=== PATIENT | male | born 1960 | race Caucasian/White ===

== ENCOUNTER 2021-07-21 13:16 | Emergency (ER) | payer MEDICAID, SELFPAY ==
[2021-07-21 13:18] VITALS: BP 148/89; PULSE 105; RESP 14; TEMP 36.8; O2SAT 97; BMI 22.3
[2021-07-21 15:42] VITALS: BP 174/99; PULSE 94; RESP 19; O2SAT 98
--- NOTE | 2021-07-21 15:49 | EDS_ITS ---
HPI History of Present Illness Chief Complaint: Dizziness Detail of Chief Complaint: Dizziness which patient defines as lightheadedness Informant: patient Onset/Context/Timing Onset: Today (Early this morning) Context: Sudden Onset Timing: Intermittent (Duration 30 minutes) Quality: Lightheaded Location: Residents Current Severity: Gone Maximum Severity: Severe Worsened by: Upright position and running around Relieved by: Preferred to sit Associated Symptoms Associated Symptoms: Nausea Narrative Narrative: Patient is a 61-year-old male who has smoked for 40+ years. He presently smokes 1/4 pack/day. 5 years ago he smoked 1.5 packs/day. Patient's had a 14 pound unintentional weight loss over the past year. Patient presents because of lightheadedness that occurred this morning when he was running around. He felt nauseous and warm. He did not pass out. He denies fever, chills or night sweats. He denies ocular, visual, auditory symptoms. He denies trouble with speech or swallowing. He does endorse chronic cough otherwise respiratory is negative. He has no cardiac symptoms. He denied vomiting or diarrhea. He denied black or maroon-colored stool. He denies urologic symptoms. He does endorse numbness and tingling for approximately 2 years in his extremities. He denies headache. He denies problems with his balance. Prior similar symptoms: No Recent Illness/Hospitalization: No PFSH PFSH Medical History no medical history no medical history (Patient has not seen a physician in 2+ decades) Home Medications NK 07/21/21 [History Last Taken Unknown] Allergy/AdvReac Type Severity Reaction Status Date / Time No Known Allergies Allergy Verified 07/21/21 13:18 Surgical History no surgical history no surgical history Social History (Updated 07/21/21 @ 15:[address] Roni Sharma MD) household members: spouse Smoking Status: Light Smoker (<10/day) alcohol intake: current alcohol intake frequency: 3 or more drinks per day details: 6 beers per day. None today substance use type: does not use ROS ROS ED Constitutional Constitutional ED: Reports weight loss; Denies chills, fever(s), subjective or sweats Eyes Eyes: Denies blurry vision, change in vision or diplopia ENT ENT ED: Reports other Details: He endorses dry mouth and thirst. ; Denies ear pain, rhinorrhea or sore throat Cardiovascular Cardiovascular: Denies chest pain, orthopnea, palpitations or racing heartbeat Respiratory/Chest Respiratory/Chest: Denies cough, dyspnea, dyspnea on exertion, orthopnea or sputum Gastrointestinal Gastrointestinal: Reports nausea; Denies abdominal pain, constipation, diarrhea or vomiting Genitourinary Genitourinary ED: Denies dysuria, hematuria or urinary frequency Musculoskeletal Musculoskeletal: Reports back pain and other Details: Back pain is due to an injury of last week ; Denies arthralgias, myalgias or neck pain Integumentary Denies rash Neurologic Neurologic: Denies headache(s), paresthesias or weakness Endocrine Endocrinology: Denies polydipsia, polyphagia or polyuria EXAM Physical Exam Const Vital Signs: 07/21/21 13:18 07/21/21 15:42 07/21/21 15:43 Temperature 98.2 F Temperature Source Temporal Pulse Rate 105 H 94 Pulse Rate [Lying] Pulse Rate [Sitting (for 1 minute prior to obtaining)] Pulse Rate [Standing (for 1 minute prior to obtaining)] Respiratory Rate 14 19 H Respiratory Effort Normal Non-Labored Respiratory Pattern Normal Blood Pressure 148/89 H 174/99 H Blood Pressure [Lying] Blood Pressure [Sitting (for 1 minute prior to obtaining)] Blood Pressure [Standing (for 1 minute prior to obtaining)] Blood Pressure Mean 108 124 Blood Pressure Mean [Lying] Blood Pressure Mean [Sitting (for 1 minute prior to obtaining)] Blood Pressure Mean [Standing (for 1 minute prior to obtaining)] Pulse Ox 97 98 Oxygen Delivery Method Room Air Room Air 07/21/21 15:51 Temperature Temperature Source Pulse Rate Pulse Rate [Lying] 78 Pulse Rate [Sitting (for 1 minute prior to obtaining)] 80 Pulse Rate [Standing (for 1 minute prior to obtaining)] 96 Respiratory Rate Respiratory Effort Respiratory Pattern Blood Pressure Blood Pressure [Lying] 146/96 H Blood Pressure [Sitting (for 1 minute prior to obtaining)] 159/106 H Blood Pressure [Standing (for 1 minute prior to obtaining)] 163/97 H Blood Pressure Mean Blood Pressure Mean [Lying] 112 Blood Pressure Mean [Sitting (for 1 minute prior to obtaining)] 123 Blood Pressure Mean [Standing (for 1 minute prior to obtaining)] 119 Pulse Ox Oxygen Delivery Method Positive well nourished and well developed Constitutional Narrative: Orthostatic vital signs are negative. General Appearance ED: well developed; Negative for cyanotic, diaphoretic or pallor HEENT Reports TM's clear and dry mucous membranes HEENT Narrative: Nares patent. Uvula midline. There is no erythema or exudate. Negative for trauma or tenderness Tympanic Membrane ED: Yes TM's clear Mouth ED: Yes dry mucous membranes Mouth: dry mucous membranes Eyes PERRL and EOMs intact bilaterally General Eye ED: Negative for pale conjunctiva or scleral icterus Neck no lymphadenopathy, supple and no JVD Resp normal respiratory effort and clear to auscultation bilaterally Cardio regular rate, regular rhythm, S1 normal heart sound, S2 normal heart sound and no murmurs GI normal to inspection, nondistended, normoactive bowel sounds and non-tender Palpation: soft Back/Spine no CVA tenderness Extremity normal to inspection General Extremety ED: Negative for edema or tenderness General Extremity: Negative for edema Neuro oriented x3, CN's II-XII intact bilaterally and no sensory deficits noted Sensorium / Orientation: alert Motor Exam: strength 5/5 throughout Psych mental status grossly normal Skin no rashes or lesions noted and no wounds General Skin Exam: Negative for jaundice or pallor MDM MDM MDM Narrative Medical decision making narrative: Patient presents with lightheadedness. Clinically is dehydrated. 1 L normal saline was ordered. Orthostatic vitals were ordered. Because he has had an unintentional weight loss of significant smoking history baseline blood work was obtained to rule out anemia, hyper Uche C. Eboni and elevated alkaline phosphatase which may represent metastasis to bone. Patient reevaluated at 1730. Patient is improved. He and family told lab results and referral to primary care physician. Lab Data Attestation: I reviewed the patient's lab results. Lab results narrative: CBC and comprehensive metabolic panel unremarkable. Labs: Laboratory Results - last 24 hr 07/21/21 07/21/21 07/21/21 15:50 15:50 16:35 WBC 10.0 RBC 4.15 L Hgb 14.4 Hct 43.4 MCV 104.6 H MCH 34.7 H MCHC 33.2 RDW Std Deviation 48.9 H RDW Coeff of [place]ora 12.4 Plt Count 268 MPV 9.0 Immature Gran % (Auto) 0.200 Neut % (Auto) 80.2 H Lymph % (Auto) 14.5 L [place] % (Auto) 3.9 Eos % (Auto) 0.7 Baso % (Auto) 0.5 Absolute Neuts (auto) 8.0 H Absolute Lymphs (auto) 1.45 Nucleated RBC % 0 Sodium 138 Potassium 4.1 Chloride 105 Carbon Dioxide 29.0 Anion Gap 4 L BUN 10 Creatinine 0.83 Estim Creat Clear Calc 77.12 Est GFR (MDRD) Af Amer 123 Est GFR (MDRD) Non-Af 101 BUN/Creatinine Ratio 12.1 Glucose 99 Calcium 9.2 Total Bilirubin 0.30 AST 28 ALT 28 Alkaline Phosphatase 62 Total Protein 7.3 Albumin 3.9 Globulin 3.4 Albumin/Globulin Ratio 1.1 Urine Color Straw Urine Clarity Clear Urine pH 6.0 Ur Specific [place] 1.010 Urine Protein Negative Urine Glucose (UA) Normal Urine Ketones 5 H Urine Occult Blood 25 H Urine Nitrite Negative Urine Bilirubin Negative Urine Urobilinogen Normal Ur Leukocyte Esterase Negative Discharge Plan Triage Chief Complaint: Dizziness ED Provider: Roni Sharma Dx/Rx/DC Orders Clinical Impression: Orthostatic dizziness Instructions: ED Near-Fainting, Uncertain Cause Prescriptions: No Action NK RF: 0 Primary Care Provider: Care Physician,No Primary Referrals: Apple Luo DO [STAFF PHYSICIAN] - 1-2 Weeks Care Physician,No Primary [Primary Care Provider] - Disposition Disposition: Home, Self Care
[2021-07-21 15:51] VITALS: BP 146/96; BP 159/106; BP 163/97; PULSE 78; PULSE 80; PULSE 96
[2021-07-21] MEDS: 0.9% Normal Saline 1,000 ML 1000 ML IV (15:58)
[2021-07-21 16:09] LABS: Absolute Lymphocyte Count 1.45 X10^3/uL (0.83-4.51); Basophil# 0.05 X10^3/uL; Basophil% 0.5 % (0-1); Eosinophil# 0.07 X10^3/uL; Eosinophils% 0.7 % (0-5); Hematocrit 43.4 % (40-54); Hemoglobin 14.4 g/dL (13.0-16.5); Lymphocyte # 1.45 X10^3/ul (0.83-4.51); Lymphocyte % 14.5 % (19-41); Mean Corp Hgb Conc 33.2 g/dL (32-36); Mean Corpuscular Hgb 34.7 pg (27.0-32.0); Mean Corpuscular Volume 104.6 fL (80-94); Monocyte# 0.39 X10^3/uL; Monocyte% 3.9 % (0-10); NRBC Flagged by Analyzer 0 % (0-5); Neutrophil % 80.2 % (47-70); Platelet Count 268 K/mm3 (150-450); RBC Distribution Width CV 12.4 % (11.6-14.6); RBC Distribution Width SD 48.9 fl (35.1-43.9); Red Blood Count 4.15 M/mm3 (4.6-6.2)
[2021-07-21 16:35] LABS: ALB/GLOB Ratio 1.1 RATIO (0.9-2.4); AST(SGOT) 28 U/L (15-37); Alanine Aminotransfer ALT/SGPT 28 U/L (16-61); Albumin, Serum 3.9 g/dL (3.2-5.0); Alkaline Phosphatase 62 U/L (45-117); Anion Gap 4 (5-15); BUN 10 mg/dL (7-18); BUN/Creat Ratio 12.1 RATIO (10-20); Calcium,Total 9.2 mg/dL (8.5-10.1); Chloride 105 mmol/L (98-107); Creatinine, Serum 0.83 mg/dL (0.70-1.30); EST Glomerular Filtration Rate 101 mL/min (>60); Est Glom Filt Rate - Afr Amer 123 mL/min (>60); Estimated Creatinine Clearance 77.12 ml/min; Globulin 3.4 g/dL (2.2-4.2); Glucose 99 mg/dL (74-106); Potassium 4.1 mmol/L (3.5-5.1); Protein, Total 7.3 g/dL (6.4-8.2); Sodium Level 138 mmol/L (136-145)
[2021-07-21 17:09] LABS: Color, Urine Straw (Yellow); Glucose, Dipstick Normal (Normal); Ketone-Dipstick 5 mg/dl (Negative); Leukocyte Esterase-Dipstick Negative /ul (Negative); Nitrite-Dipstick Negative (Negative); Occult Blood-Urine 25 /ul (Negative); Protein-Dipstick Negative (Negative); Urine Bilirubin Dipstick Negative (Negative); Urine Clarity Clear (Clear); Urine Urobilinogen Normal (Normal)
== END 2021-07-21 17:45 | disposition home or self-care (01) ==
PROVIDERS: Emergency Provider Emergency Medicine; Visit Provider Emergency Medicine
DX: R42 Dizziness and giddiness (principal); F17.200 Nicotine dependence, unspecified, uncomplicated
CPT/HCPCS: 80053; 81002; 85025; 96360; 99285; J7030; A4216

== ENCOUNTER → 2021-09-17 | Outpatient (CLI) | payer MEDICAID, SELFPAY ==
[2021-09-17 15:16] LABS: Vitamin B12 418 pg/mL (211-911)
[2021-09-17 15:19] LABS: Cholesterol 170 mg/dL (200); High Density Lipoprotein 98 mg/dL; Thyroid Stim Hormone (TSH) 0.93 uIU/mL (0.358-3.74); Triglycerides 40 mg/dL; Very Low Density Lipoprotein 8 mg/dL (5-40)
[2021-09-17 15:21] LABS: Hemoglobin A1c 5.6 % (3.8-5.6)
== END | disposition home or self-care (01) ==
LOC: MFPLAB 11:45
PROVIDERS: PCP Family Medicine; Referring Provider Family Medicine; Visit Provider Family Medicine
DX: Z13.1 Encounter for screening for diabetes mellitus (principal); Z13.220 Encounter for screening for lipoid disorders; R53.83 Other fatigue
CPT/HCPCS: 36415; 80061; 82306; 82607; 83036; 84443

== ENCOUNTER → 2021-09-25 | Outpatient (CLI) | payer MEDICAID, SELFPAY ==
--- NOTE | 2021-09-25 08:03 | CT_ITS ---
STUDY: CT CHEST WITH CONTRAST REASON FOR EXAM: Male, 61 years old. Lung nodule, shortness of breath RADIATION DOSAGE (If Supplied By Facility): CTDIvol = ( 8 ) mGy, DLP = ( 233.3 ) mGycm TECHNIQUE: Transaxial imaging was performed following intravenous administration of IV 100mL Isovue-300. Multiplanar coronal and sagittal images were reformatted. Individualized dose optimization techniques were used for this CT. COMPARISON: No relevant priors. FINDINGS: CHEST Hyperinflation. Diffuse emphysematous changes with bullous formation more prominent in the upper lobes. There is evidence of a pleural-based irregular soft tissue nodule in the posterior aspect of the left upper lobe measuring 1.7 cm x 1.2 cm. Anterior to this, there is evidence of bullous changes with a finding suggestive of linear scarring and spiculation. Correlation with a PET scan is recommended for further evaluation. There is no demonstrated pleural abnormality. There are calcifications of the coronary arteries. Normal mediastinum. Normal hilar regions. Normal unenhanced pulmonary arteries. Normal aorta arch and descending thoracic aorta. Normal osseous structures. There is a 2 cm x 2 cm cyst in the upper medial aspect of the right kidney. There is also evidence of a 0.9 cm cyst in the right lobe of the liver. CT/Chest WITH Contrast IMPRESSION: Hyperinflation and emphysema with bullous changes. Findings suggestive of irregular scarring in the posterior aspect of the left upper lobe as described. Correlation with a PET scan is recommended for further evaluation to rule out underlying neoplastic process. Electronically Signed: Jose Roberto Wynne MD at 9:08 EDT ,
== END | disposition home or self-care (01) ==
LOC: CT 08:02
PROVIDERS: PCP Family Medicine; Referring Provider Family Medicine; Visit Provider Family Medicine
DX: R91.1 Solitary pulmonary nodule (principal)
CPT/HCPCS: 71260; Q9967

== ENCOUNTER → 2021-10-08 | Outpatient (CLI) | payer MEDICAID, SELFPAY ==
--- NOTE | 2021-10-08 10:00 | PET_ITS ---
EXAMINATION: FDG PET-CT INDICATIONS: A 61-year-old male with history of pulmonary nodularity. COMPARISON EXAMINATION: None available INDEX LESION SIZE SUV INTERPRETATION Left upper lung field 32.6-mm 4.45 Fulfills quantitative criteria for viable neoplasm, histopathologic analysis recommended NON-INDEX LESION SIZE SUV INTERPRETATION Left thoracic perihilum, right infrahilar region 2.3 (max) Quantitative criteria for viable neoplasm are not fulfilled TECHNIQUE: Following the intravenous administration of 12.08 mCi of F-18 deoxyglucose via the right antecubital fossa, multiplanar image acquisitions of the neck, chest, abdomen and pelvis to level of mid thigh, obtained at one hour post radiopharmaceutical administration contemporaneously interpreted with the current CT of the neck, chest, abdomen and pelvis, to level of mid thigh, dated 10/08/21 via coregistration reveals: BLOOD GLUCOSE LEVEL:?? 97 mg/dl?HEIGHT:?63 inches?WEIGHT: 118 lbs. FINDINGS: Head/Neck: There is no evidence of abnormal increased glucose metabolism in the pharyngeal mucosal space, parapharyngeal space, bilateral-lateral and anterior neck, hypopharynx and distribution of the laryngeal structures. The visualized portion of the cerebral cortical-subcortical structures demonstrate symmetric and preserved glucose metabolism. CHEST: A focus increased glucose metabolism is identified in the left apical lung field. The calculated maximal standard uptake value is 4.45. The maximal axial diameter of the metabolic, morphologic abnormality is 32.6-mm. Increased glucose metabolism is identified in the left thoracic perihilum and right infrahilar region. The calculated maximal standard uptake value is 2.3. Pertinent chest CT findings are as follows. Emphysematous changes are encountered in the bilateral upper lung zones. Coronary arterial calcification is observed. Bilateral axillary soft tissue densities are non-glucose avid. Abdomen/Pelvis: Normal physiologic distribution of the radiopharmaceutical is apparent in the hepatic (2.4) and splenic parenchyma, both renal units, bladder and visualized intestinal tract. Diffuse radiopharmaceutical concentration is noted in all four quadrants of the abdomen and pelvis. Pertinent abdomen and pelvis CT findings are as follows. There is atherosclerotic calcification defined in the abdominal aorta without evidence of dilatation-aneurysm formation. Minimal pelvic arterial calcification is encountered. Right-left inguinal soft tissue densities are non-glucose avid. Calcification is defined in the right base of the prostate gland involving the central zone without evidence of increased glucose metabolism. Calcification is defined in the left lower hemipelvis. Skeletal: Degenerative changes are noted in the cervical, thoracic and lumbar spine without evidence of increased radiopharmaceutical concentration. There are no well-defined sclerotic-lytic changes manifest on review of the appendicular-axial skeletal structures. PET/PET/CT Tumor Base -Thigh Init IMPRESSION: 1. The increase in glucose metabolism identified in the left upper hemithorax pulmonary parenchyma, left upper lobe fulfills quantitative criteria for viable neoplasm with single point technique. Histopathologic analysis is recommended. 2. The enhanced tracer concentration noted in the right infrahilar region and left thoracic perihilum do not fulfill quantitative criteria for malignant transformation. (Maria C piper al, Journal of Clinical Oncology 16:2142, 1998). Electronic Signature Leonel Mercado D.O. Accurate Quantification of SUVs for this report are calculated using the exclusive [employer]. (U.S. Patent No. 10, [id number] 983). Standardization and correction of the FDG SUV metric via [employer] technology allow for vendor non-specific objective quantitative examination comparison and optimization of the sensitivity and specificity of the FDG PET-CT examination. Electronically Signed: Leonel Mercado, at 16:37 EDT ,
== END | disposition home or self-care (01) ==
LOC: ONC 10:03
PROVIDERS: PCP Family Medicine; Referring Provider Family Medicine; Visit Provider Family Medicine
DX: R91.1 Solitary pulmonary nodule (principal)
CPT/HCPCS: 78815; A9552

== ENCOUNTER 2022-09-26 22:34 | Emergency (ER) | payer MEDICAID, SELFPAY ==
[2022-09-26 22:34] VITALS: O2SAT 96
[2022-09-26 22:35] VITALS: BP 151/95; PULSE 113; RESP 20; TEMP 36.8; O2SAT 95; BMI 20.2
--- NOTE | 2022-09-26 23:05 | RAD_ITS ---
INDICATION: dyspnea EXAMINATION/TECHNIQUE: X-RAY - XR Chest 2 Views COMPARISON: Chest CTA 09/25/2021.. Findings: Frontal and lateral views of the chest. LUNG PARENCHYMA: No acute focal airspace disease. Stable left apical curvilinear scarring. Right mid lung 5 mm rounded opacity overlying the anterior fifth rib end, not seen previously. PLEURA: Flattening of the hemidiaphragms as can be seen with air trapping. No pleural effusion. No pneumothorax. HEART/GREAT VESSELS: Cardiomediastinal silhouette is unremarkable. BONES: Stable expansile bony lesion of right lower anterior rib end. RAD/Chest PA and Lateral IMPRESSION: Right mid lung 5 mm rounded opacity overlying the anterior fifth rib end, not seen previously, to include pulmonary nodule. Recommend follow-up evaluation as neoplastic process is not excluded. Stable chest with no acute disease. Air trapping as can be seen with COPD change. Electronically Signed: Bang Garcia MD at 23:51 EDT ,
[2022-09-26 23:08] LABS: Absolute Neutrophil Count 8.7 X10^3/uL (2.0-7.7); Basophil# 0.06 X10^3/uL; Basophil% 0.6 % (0-1); Eosinophil# 0.08 X10^3/uL; Eosinophils% 0.8 % (0-5); Hematocrit 45.7 % (40-54); Hemoglobin 15.2 g/dL (13.0-16.5); Lymphocyte % 12.3 % (19-41); Mean Corp Hgb Conc 33.3 g/dL (32-36); Mean Corpuscular Hgb 35.4 pg (27.0-32.0); Mean Corpuscular Volume 106.5 fL (80-94); Mean Platelet Vol. 8.7 fl (6.2-12.0); Monocyte% 3.8 % (0-10); NRBC Flagged by Analyzer 0 % (0-5); Neutrophil # 8.72 X10^3/uL (2.7-7.7); Neutrophil % 82.2 % (47-70); Platelet Count 236 K/mm3 (150-450); RBC Distribution Width CV 13.1 % (11.6-14.6); RBC Distribution Width SD 51.4 fl (35.1-43.9); Red Blood Count 4.29 M/mm3 (4.6-6.2); White Blood Count 10.6 K/mm3 (4.4-11.0)
[2022-09-26] MEDS: Ipratropium/Albuterol Sulfate 3 ML AMPUL.NEB INHALATION (23:15)
[2022-09-26 23:20] LABS: Anion Gap 7 (5-15); BUN 5 mg/dL (7-18); BUN/Creat Ratio 7.2 RATIO (10-20); Calcium,Total 8.7 mg/dL (8.5-10.1); Chloride 109 mmol/L (98-107); EST Glomerular Filtration Rate 122 mL/min (>60); Est Glom Filt Rate - Afr Amer 148 mL/min (>60); Estimated Creatinine Clearance 82.38 ml/min; Glucose 97 mg/dL (74-106); Magnesium 2.2 mg/dL (1.6-2.6); Sodium Level 140 mmol/L (136-145)
[2022-09-26 23:34] VITALS: BP 115/81; PULSE 100; RESP 19; O2SAT 93
[2022-09-27] VITALS: BP 116/68; PULSE 112; RESP 19; O2SAT 93
[2022-09-27 00:17] VITALS: O2SAT 94
[2022-09-27 00:35] VITALS: BP 112/70; PULSE 99; RESP 19; O2SAT 93
--- NOTE | 2022-09-27 00:36 | EDS_ITS ---
HPI History of Present Illness Chief Complaint: Shortness of Breath Informant: patient Narrative Narrative: Patient is a 62-year-old male with past medical history of COPD. He states that he was [place] the [employer] and outside in the hot humid air and after being in that environment began feeling shortness of breath. He states he went inside and sat in the air conditioning and also used his normal medication with minimal symptom improvement. He denies any chest pain associated with this but with symptoms not resolving with his normal medications friends were concerned and advised patient to come in for evaluation [facility] Medical History (Updated 09/27/22 @ 00:[address] Ricci Narvaez, DO) Asthma COPD (chronic obstructive pulmonary disease) Home Medications albuterol sulfate 90 mcg/actuation aerosol inhaler (Ventolin HFA) inhalation 09/26/22 [History Last Taken Unknown] umeclidinium 62.5 mcg-vilanterol 25 mcg/actuation powdr for inhalation (Anoro Ellipta) 1 inh inhalation Q24H 09/26/22 [History Last Taken Unknown] albuterol sulfate 90 mcg/actuation aerosol inhaler (Ventolin HFA) 1 - 2 puff inhalation Q4H PRN PRN Wheezing #1 device 09/27/22 [Rx Last Taken Unknown] nystatin 100,000 unit/mL oral suspension 5 ml PO 4X/DAY 14 days #280 mL 09/27/22 [Rx Last Taken Unknown] prednisone 20 mg tablet 40 mg (2 x 20 mg) PO DAILY 7 days #14 tabs 09/27/22 [Rx Last Taken Unknown] Allergy/AdvReac Type Severity Reaction Status Date / Time No Known Allergies Allergy Verified 09/26/22 22:35 Social History (Updated 07/21/21 @ 15:[address] Roni Sharma MD) household members: spouse Smoking Status: Light Smoker (<10/day) alcohol intake: current alcohol intake frequency: 3 or more drinks per day details: 6 beers per day. None today substance use type: does not use ROS ROS ED Constitutional Constitutional ED: Denies chills or fever(s) ENT ENT ED: Denies sore throat Cardiovascular Cardiovascular: Denies chest pain Respiratory/Chest Respiratory/Chest: Reports cough, dyspnea and dyspnea on exertion Gastrointestinal Gastrointestinal: Denies abdominal pain, diarrhea, nausea or vomiting Genitourinary Genitourinary ED: Denies dysuria Musculoskeletal Musculoskeletal: Denies myalgias Integumentary Denies rash Neurologic Neurologic: Denies headache(s) Hematologic/Lymphatic Hematologic/Lymphatic: Denies easy bleeding or easy bruising EXAM Physical Exam Const Vital Signs: 09/26/22 22:35 09/26/22 22:34 09/26/22 23:34 Temperature 98.3 F Temperature Source Temporal Pulse Rate 113 H 100 Respiratory Rate 20 H 19 H Respiratory Effort Short of Breath Respiratory Depth Deep Respiratory Pattern Tachypnea Blood Pressure 151/95 H 115/81 H Blood Pressure Mean 113 92 Pulse Ox 95 93 Oxygen Delivery Method Room Air Room Air Room Air 09/27/22 00:00 09/27/22 00:35 Temperature Temperature Source Pulse Rate 112 H 99 Respiratory Rate 19 H 19 H Respiratory Effort Respiratory Depth Respiratory Pattern Blood Pressure 116/68 112/70 Blood Pressure Mean 84 Pulse Ox 93 93 Oxygen Delivery Method Room Air Positive well nourished and well developed General Appearance ED: well developed HEENT HEENT Narrative: Patient has white plaques within the buccal mucosa consistent with thrush but otherwise there are no signs of airway compromise. No tongue or lip swelling Eyes PERRL and EOMs intact bilaterally Neck supple and no JVD Chest Wall palpation of chest normal Resp normal respiratory effort Resp Narrative: Breath sounds are diminished throughout with faint expiratory wheeze in the bilateral bases otherwise no nostril flaring tachypnea or accessory muscle use or retractions Cardio regular rate and regular rhythm Rate: other Other Details: Carotid and radial pulses are equal and symmetric GI normal to inspection, nondistended, normoactive bowel sounds, non-tender, non- distended and no masses Auscultation: normoactive bowel sounds Palpation: soft Extremity normal to inspection Extremity Narrative: No asymmetric edema no pitting edema negative Homans' sign bilaterally Neuro oriented x3 and CN's II-XII intact bilaterally Sensorium / Orientation: alert Psych mental status grossly normal Skin no rashes or lesions noted MDM MDM MDM Narrative Medical decision making narrative: Patient presented to the ER satting in the mid 90s on room air. His report of difficulty breathing could be related to COPD exacerbation versus pneumonia versus pneumothorax versus pleural effusion. Secondary to this basic blood work was obtained as well as a chest x-ray. Labs revealed no clinically significant findings and chest x-ray revealed changes consistent with COPD but otherwise no obvious pneumonia or pneumothorax. Patient was given Solu-Medrol per EMS and had a albuterol treatment as well as a DuoNeb while in the ER. On reevaluation he is resting comfortably and remains in no acute respiratory distress. Pulse ox is in the mid 90s on room air and with ambulation he does not desat below 90%. Therefore at this time as work-up does not reveal signs of pneumonia or acute blood loss anemia or electrolyte derangements and he is not requiring supplemental oxygen he is otherwise safe for discharge Lab Data Attestation: I reviewed the patient's lab results. Labs: Laboratory Results - last 24 hr 09/26/22 23:02 WBC 10.6 RBC 4.29 L Hgb 15.2 Hct 45.7 MCV 106.5 H MCH 35.4 H MCHC 33.3 RDW Std Deviation 51.4 H RDW Coeff of [place] 13.1 Plt Count 236 MPV 8.7 Immature Gran % (Auto) 0.300 Neut % (Auto) 82.2 H Lymph % (Auto) 12.3 L [place] % (Auto) 3.8 Eos % (Auto) 0.8 Baso % (Auto) 0.6 Absolute Neuts (auto) 8.7 H Absolute Lymphs (auto) 1.30 Nucleated RBC % 0 Sodium 140 Potassium 4.0 Chloride 109 H Carbon Dioxide 24.0 Anion Gap 7 BUN 5 L Creatinine 0.70 Estim Creat Clear Calc 82.38 Est GFR (MDRD) Af Amer 148 Est GFR (MDRD) Non-Af 122 BUN/Creatinine Ratio 7.2 L Glucose 97 Calcium 8.7 Magnesium 2.2 Radiography Diagnostic Testing: Clinical Impression(s) from Imaging Studies Chest X-Ray 09/26/22 23:05 IMPRESSION: Right mid lung 5 mm rounded opacity overlying the anterior fifth rib end, not seen previously, to include pulmonary nodule. Recommend follow-up evaluation as neoplastic process is not excluded. Stable chest with no acute disease. Air trapping as can be seen with COPD change. Electronically Signed: Bang Garcia MD at 23:51 EDT , 2 view chest x-ray as interpreted by the emergency medicine physician reveals COPD changes with a 5 mm nodule in the right mid upper lung without acute infiltrate pneumothorax or pleural effusion Discharge Plan Triage Chief Complaint: Shortness of Breath ED Provider: Ricci Narvaez Dx/Rx/DC Orders Clinical Impression: Acute exacerbation of chronic obstructive pulmonary disease, Oral thrush Instructions: COPD: Wheezing and Chest Tightness Prescriptions: New albuterol sulfate [Ventolin HFA] 90 mcg/actuation HFA aerosol inhaler 1 - 2 puff inhalation Q4H PRN PRN (Reason: Wheezing) Qty: 1 2RF prednisone 20 mg tablet 40 mg PO DAILY 7 Days Qty: 14 0RF nystatin 100,000 unit/mL suspension 5 ml PO 4X/DAY 14 Days Qty: 280 0RF No Action Anoro Ellipta 62.5-25 mcg/actuation blister with device 1 inh INHALATION Q24H Patient Comments: INHALE 1 PUFF BY MOUTH EVERY DAY albuterol sulfate [Ventolin HFA] 90 mcg/actuation HFA aerosol inhaler INHALATION Primary Care Provider: Ewa Harper Referrals: Ewa Harper, DO [Primary Care Provider] - Activity Restrictions/Additional Instructions: Your work-up this evening indicates you had a COPD exacerbation brought on most likely by the weather. Use the steroids to reduce inflammatory process in the inhaler as needed for increased shortness of breath or wheeze. If you have any further concerns please return the hospital for repeat evaluation Disposition Disposition: Home, Self Care Discharge Date/Time: 09/27/22 00:48
[2022-09-27] MEDS: Albuterol Sulfate 8 gm Inhaler (60 puffs) 2 PUFF INHALATION (00:44)
== END 2022-09-27 00:48 | disposition home or self-care (01) ==
PROVIDERS: Emergency Provider Emergency Medicine; PCP Family Medicine; Visit Provider Emergency Medicine
DX: J44.1 Chronic obstructive pulmonary disease with (acute) exacerbation (principal); B37.0 Candidal stomatitis; F17.200 Nicotine dependence, unspecified, uncomplicated
CPT/HCPCS: 71046; 80048; 83735; 85025; 99284; A4216

== ENCOUNTER 2022-10-26 06:00 | Emergency (ER) | payer MEDICAID, SELFPAY ==
[2022-10-26 06:01] VITALS: BP 146/105; PULSE 122; RESP 19; TEMP 36.2; O2SAT 98; BMI 20.6
--- NOTE | 2022-10-26 06:06 | EKG12_ITS ---
Test Reason : DYSRHYTHMIA Blood Pressure : / mmHG Vent. Rate : 116 BPM Atrial Rate : 116 BPM P-R Int : 144 ms QRS Dur : 076 ms QT Int : 302 ms P-R-T Axes : 086 078 065 degrees QTc Int : 419 ms Sinus tachycardia Possible Left atrial enlargement Borderline ECG Confirmed by STALIN MCACNN, RENA ([id number]), map editor JULY FRIEDMAN ([id number]) on 10/29/2022 1:52:33 PM Referred By: DENNIS Confirmed By:RENA GANT MD
--- NOTE | 2022-10-26 06:16 | RAD_ITS ---
STUDY: X-RAY CHEST REASON FOR EXAM: Male, 62 years old. Chest pain TECHNIQUE: Single AP portable view of the chest. COMPARISON: Comparison is made with prior study September 26, 2022. FINDINGS: EKG electrodes are seen. There is hyperinflation of the lungs consistent with chronic obstructive lung disease (COPD). There is no demonstrated pleural abnormality. Normal size heart. Normal mediastinum and marilin. Normal visualized pulmonary arteries. Normal visualized aortic arch and descending thoracic aorta. Normal visualized thoracic spine. Normal visualized ribs, clavicles, and shoulders. There is no demonstrated abnormality of the visualized soft tissue structures of the upper abdomen. RAD/Chest 1 View (Portable) IMPRESSION: Hyperinflation. Decreased bronchovascular markings in both lungs suggestive of emphysematous changes. Electronically Signed: Jose Roberto Wynne MD at 11:21 EDT ,
[2022-10-26 06:18] LABS: Absolute Neutrophil Count 8.7 X10^3/uL (2.0-7.7); Basophil% 0.9 % (0-1); Eosinophil# 0.22 X10^3/uL; Hematocrit 48.3 % (40-54); Lymphocyte % 12.5 % (19-41); Mean Corp Hgb Conc 33.1 g/dL (32-36); Mean Corpuscular Hgb 34.8 pg (27.0-32.0); Mean Platelet Vol. 8.2 fl (6.2-12.0); Monocyte# 0.68 X10^3/uL; Monocyte% 6.1 % (0-10); NRBC Flagged by Analyzer 0 % (0-5); Neutrophil % 77.7 % (47-70); Platelet Count 292 K/mm3 (150-450); RBC Distribution Width CV 12.4 % (11.6-14.6); RBC Distribution Width SD 48.5 fl (35.1-43.9); White Blood Count 11.2 K/mm3 (4.4-11.0)
[2022-10-26] MEDS: Aspirin 81 MG TAB.CHEW 324 MG PO (06:19)
[2022-10-26 06:33] LABS: D-Dimer Quantitative (DVT/PE) 0.29 FEU/ug/m (0.27-0.49)
--- NOTE | 2022-10-26 06:37 | ED.VIS.CHEST ---
HPI History of Present Illness Chief Complaint: Chest Pain Narrative Narrative: 62-year-old male presenting with chest pain. This started about 2:30 AM. Its burning in nature. Patient states he took a Tums and it started to help a little bit but then came back. He states his son woke up and went to work and then he became very worried his pain was getting worse. Patient did have a few beers yesterday but does not have a history of pancreatitis. Is the patient's first day off of prednisone after a prednisone burst for his asthma. PFSH PFS Medical History Asthma COPD (chronic obstructive pulmonary disease) Home Medications albuterol sulfate 90 mcg/actuation aerosol inhaler (Ventolin HFA) 2 puff inhalation Q4H PRN shortness of breath or wheezing 09/26/22 [History Last Taken Unknown] umeclidinium 62.5 mcg-vilanterol 25 mcg/actuation powdr for inhalation (Anoro Ellipta) 1 inh inhalation Q24H 09/26/22 [History Last Taken Unknown] nystatin 100,000 unit/mL oral suspension 5 ml PO 4X/DAY 14 days #280 mL 09/27/22 [Rx Last Taken Unknown] bupropion HCl 150 mg tablet,12 hr sustained-release 300 mg PO DAILY 10/26/22 [History Last Taken Unknown] Allergy/AdvReac Type Severity Reaction Status Date / Time No Known Allergies Allergy Verified 10/26/22 06:05 Social History household members: spouse Smoking Status: Light Smoker (<10/day) alcohol intake: current alcohol intake frequency: 3 or more drinks per day details: 6 beers per day. None today substance use type: does not use ROS ROS ED Constitutional Constitutional ED: Denies chills, fever(s) or sweats Eyes Eyes: Denies blurry vision or change in vision ENT ENT ED: Denies ear pain or sore throat Cardiovascular Cardiovascular: Reports chest pain; Denies palpitations or racing heartbeat Respiratory/Chest Respiratory/Chest: Denies cough, dyspnea or sputum Gastrointestinal Gastrointestinal: Reports abdominal pain and nausea; Denies constipation, diarrhea or vomiting Genitourinary Genitourinary ED: Denies dysuria, hematuria or urinary frequency Musculoskeletal Musculoskeletal: Denies arthralgias, myalgias or neck pain Integumentary Denies abscess, Abrasions or rash Neurologic Neurologic: Denies headache(s), paresthesias or weakness Psychiatric Psychiatric: Denies anxiety, depression, suicidal ideation or suicidal thoughts Endocrine Endocrinology: Denies polydipsia or polyuria EXAM Physical Exam Const Vital Signs: 10/26/22 06:01 10/26/22 06:16 Temperature 97.2 F L Temperature Source Temporal Pulse Rate 122 H Respiratory Rate 19 H Blood Pressure 146/105 H Blood Pressure Mean 118 Pulse Ox 98 Oxygen Delivery Method Room Air Room Air Positive well nourished General Appearance ED: NAD HEENT Reports moist mucous membranes normocephalic and atraumatic Eyes PERRL Chest Wall inspection of chest normal Resp normal respiratory effort and clear to auscultation bilaterally Auscultation: Negative for rales, rhonchi or wheezes Cardio regular rhythm Rate: tachycardic GI normal to inspection, nondistended, normoactive bowel sounds Extremity normal to inspection Neuro oriented x3 and CN's II-XII intact bilaterally Motor Exam: strength 5/5 throughout Skin no rashes or lesions noted and no wounds Heart Score History: Slightly/Non-Suspicious ECG: Normal Age: >45 - <65 years Risk Factors: 1 or 2 Risk Factors Troponin: </= Normal Limit Score: 2 MDM MDM MDM Narrative Medical decision making narrative: Patient presenting with chest pain which feels like burning. He also has epigastric pain which is burning. Differential includes acute coronary syndrome, pneumonia, CHF, GERD, gastritis, cholecystitis, cholelithiasis, pancreatitis, PE. CBC was obtained to assess white blood cell count, hemoglobin, platelets. BMP to assess renal function, electrolytes. LFTs and lipase were added due to the epigastric pain. EKG and high-sensitivity troponin will be obtained to assess for ischemia/dysrhythmia. Chest x-ray rule out pneumonia. CBC shows a white blood cell count 11.2. Hemoglobin stable at 16. Platelets normal to 92. Renal function and electrolytes unremarkable. High-sensitivity troponin is 4. EKG on my interpretation shows a sinus tachycardia at a rate of 116 bpm without sign of ischemic change. Patient was given initial GI cocktail to see if this would help. I will reevaluate him. On reevaluation his pain is gone. His LFTs are normal. His lipase is normal. I do not believe the patient needs a delta troponin. Impression: 1. Chest pain 2. Epigastric pain Lab Data Attestation: I reviewed the patient's lab results. Labs: Laboratory Results - last 24 hr 10/26/22 06:12 WBC 11.2 H RBC 4.60 Hgb 16.0 Hct 48.3 MCV 105.0 H MCH 34.8 H MCHC 33.1 RDW Std Deviation 48.5 H RDW Coeff of [place] 12.4 Plt Count 292 MPV 8.2 Immature Gran % (Auto) 0.800 Neut % (Auto) 77.7 H Lymph % (Auto) 12.5 L [place] % (Auto) 6.1 Eos % (Auto) 2.0 Baso % (Auto) 0.9 Absolute Neuts (auto) 8.7 H Absolute Lymphs (auto) 1.40 Nucleated RBC % 0 D-Dimer Quant (PE/DVT) 0.29 Sodium 135 L Potassium 3.9 Chloride 99 Carbon Dioxide 31.0 Anion Gap 5 BUN 13 Creatinine 1.04 Estim Creat Clear Calc 56.52 Est GFR (MDRD) Af Amer 94 Est GFR (MDRD) Non-Af 77 BUN/Creatinine Ratio 12.5 Glucose 120 H Calcium 9.4 Total Bilirubin 0.30 Direct Bilirubin 0.10 AST 16 ALT 25 Alkaline Phosphatase 82 Troponin I High Sens 4 Total Protein 7.2 Albumin 3.4 Globulin 3.8 Lipase 47 Discharge Plan Triage Chief Complaint: Chest Pain ED Provider: Nik Beck Dx/Rx/DC Orders Instructions: ED Chest Pain, Noncardiac, ED Gastritis (Adult) Prescriptions: No Action bupropion HCl 150 mg tablet sustained-release 12 hr 300 mg PO DAILY Patient Comments: TAKE ONE TABLET BY MOUTH TWICE DAILY Anoro Ellipta 62.5-25 mcg/actuation blister with device 1 inh INHALATION Q24H Patient Comments: INHALE 1 PUFF BY MOUTH EVERY DAY albuterol sulfate [Ventolin HFA] 90 mcg/actuation HFA aerosol inhaler 2 puff INHALATION Q4H PRN (Reason: shortness of breath or wheezing) nystatin 100,000 unit/mL suspension 5 ml PO 4X/DAY 14 Days Qty: 280 0RF Primary Care Provider: Ewa Harper Referrals: Ewa Harper DO [Primary Care Provider] - Disposition Disposition: Home, Self Care
[2022-10-26 06:48] LABS: Anion Gap 5 (5-15); BUN 13 mg/dL (7-18); BUN/Creat Ratio 12.5 RATIO (10-20); Calcium,Total 9.4 mg/dL (8.5-10.1); Chloride 99 mmol/L (98-107); Creatinine, Serum 1.04 mg/dL (0.70-1.30); EST Glomerular Filtration Rate 77 mL/min (>60); Est Glom Filt Rate - Afr Amer 94 mL/min (>60); Estimated Creatinine Clearance 56.52 ml/min; Glucose 120 mg/dL (74-106); Potassium 3.9 mmol/L (3.5-5.1); Sodium Level 135 mmol/L (136-145); Troponin-I HS (w/2H Reflex) 4 pg/mL (3.0-78.0)
[2022-10-26] MEDS: Mag Hydrox/Al Hydrox/Simeth 30 ML UDC PO (06:56)
[2022-10-26 07:00] VITALS: RESP 18
[2022-10-26 07:03] LABS: AST(SGOT) 16 U/L (15-37); Alanine Aminotransfer ALT/SGPT 25 U/L (16-61); Albumin, Serum 3.4 g/dL (3.2-5.0); Alkaline Phosphatase 82 U/L (45-117); Globulin 3.8 g/dL (2.2-4.2); Lipase 47 U/L (13-75); Protein, Total 7.2 g/dL (6.4-8.2)
[2022-10-26 08:15] LABS: Reflex Troponin-HS? (from REC) Y
== END 2022-10-26 07:23 | disposition home or self-care (01) ==
PROVIDERS: Emergency Provider Student in an Organized Health Care Education/Training Program; PCP Family Medicine; Visit Provider Student in an Organized Health Care Education/Training Program
DX: R07.9 Chest pain, unspecified (principal); J44.9 Chronic obstructive pulmonary disease, unspecified; R10.13 Epigastric pain; F17.200 Nicotine dependence, unspecified, uncomplicated; Z79.899 Other long term (current) drug therapy
CPT/HCPCS: 71045; 80048; 80076; 83690; 84484; 85025; 85379; 93005; 99284; A4216

== ENCOUNTER → 2022-10-28 | Outpatient (CLI) | payer MEDICAID, SELFPAY ==
--- NOTE | 2022-10-28 07:13 | CT_ITS ---
STUDY: LOW DOSE CT LUNG CANCER SCREENING REASON FOR EXAM: Male, 62 years old. TOBACCO USE DISORDER. Patient smoked 2 packs per day for 45 years. COPD. RADIATION DOSAGE (If Supplied By Facility): CTDIvol = ( 2.01 ) mGy, DLP = ( 72.98 ) mGycm TECHNIQUE: No contrast was administered. Low dose technique was utilized (average mAS-38 and kVp 120). 1.25 mm axial source images with a slice interval of 1.25-mm were reconstructed in lung windows. 2.5 mm axial source images with a slice interval of 2.5-mm were reconstructed in lung windows. 5.0 mm axial source images with a slice interval of 5.0-mm were reconstructed in soft tissue windows. COMPARISON: Comparison is made with prior study dated September 25, 2021. NODULES: No suspicious nodule is seen. Emphysema: Hyperinflation. Diffuse emphysematous changes involving both lungs worse in the upper lobes. Residual linear scarring in both upper lobes worse in the posterior aspect of the left upper lobe. The previously seen 1.75 x 1.2 cm pleural-based soft tissue nodule in the posterior aspect of the left upper lobe is not seen at this time. Endobronchial lesion: None Aorta: Atherosclerotic calcific plaques. CORONARY ARTERIES: Coronary artery calcification is seen. Heart: Unremarkable Pulmonary artery: Unremarkable Mediastinal nodes: Unremarkable Other chest and abdominal findings: CT/Low Dose CT Lung Screening IMPRESSION: Lung-RADS category 2 - Continue annual screening with LDCT in 12 months. IMPORTANT NOTES FOR USE: ACR Lung-RADS Version 1.1 Assessment Categories Release Date: 2018 Category: Coded 0-4 bases on nodule(s) with highest degree of suspicion. Negative screen is defined as categories 1 and 2; a positive screen is defined as categories 3 and 4. Category 3 and 4A nodules that are unchanged on interval CT should be coded as category 2, and individuals returned to screening in 12 months. Category 4X: Category 3 or 4 nodules with additional imaging findings that increase the suspicion of lung cancer, such as spiculation, GGN that doubles in size in 1 year, enlarged lymph notes, etc. Category Modifiers: S (significant finding unrelated to lung cancer) Electronically Signed: Jose Roberto Wnyne MD at 14:36 EDT ,
== END | disposition home or self-care (01) ==
PROVIDERS: PCP Family Medicine; Referring Provider Family Medicine; Visit Provider Family Medicine
DX: Z12.2 Encounter for screening for malignant neoplasm of respiratory organs (principal); Z87.891 Personal history of nicotine dependence
CPT/HCPCS: 71271

== ENCOUNTER 2023-05-01 23:45 | Emergency (ER) | payer MEDICAID, SELFPAY ==
[2023-05-01 23:47] VITALS: BP 111/80; PULSE 116; RESP 16; TEMP 36.6; O2SAT 92; BMI 21.1
--- OUTSIDE RECORDS SUMMARY | 2023-05-02 00:32 | XMS RPT_ITS | CCD ---
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 Name Role Phone Dionisio Goldman Unavailable DESEAN WOO Attending Unavailable DIONISIO BYRD Referring Unavailable DESEAN WOO Referring Unavailable Dionisio Goldman Unavailable Medications Completed/Discontinued Medications Medication Drug Class(es) Dates Sig (Normalized) Sig (Original) [id number] 200 actuat albuterol 0.09 mg/actuat metered dose inhaler (6 sources) beta2-Adrenergic Agonist Start: 12-17-2021 End: 09-18-2022 take 2 puff(s) by inhalation every four hours as needed for wheezing albuterol HFA (PROVENTIL HFA, VENTOLIN HFA) 90 mcg/actuation inhaler Inhale 2 Puffs as instructed every 4 hours as needed for wheezing/shortness of breath. 1 Each 5 12/17/2021 09/18/2022 Discontinued Problems Problem Classification Problem Date Documented Da te Episodic/Chronic Chronic obstructive pulmonary disease and bronchiectasis (12 sources) Pulmonary emphysema; Translations: [Other emphysema] Onset: 12-17-2021 12-17-2021 Chronic Lymphadenitis (3 sources) Localized enlarged lymph nodes; Translations: [Localized enlarged lymph nodes] Onset: 12-18-2021 Episodic Other lower respiratory disease (2 sources) Nodule of lung; Translations: [Solitary pulmonary nodule] Episodic Other lower respiratory disease (2 sources) Multiple nodules of lung; Translations: [Other nonspecific abnormal finding of lung field] Episodic Other lower respiratory disease (1 source) Solitary pulmonary nodule; Translations: [Lung nodule] Onset: 12-18-2021 Episodic Other lower respiratory disease (1 source) Other nonspecific abnormal finding of lung field; Translations: [Lung nodules] Onset: 12-18-2021 Episodic Results Test Name Value Interpretation Reference Range Facil ity Vital Signs Date Time Vital Sign Value Performing Clinician Faci lity 12-17-2021 10:58-0400 Body temperature 96.69 [degF] Desean Woo MD Work Phone: [facility] 12-17-2021 10:58-0400 Body weight 51.53 kg Desean Woo MD Work Phone: [facility] 12-17-2021 10:58-0400 Diastolic blood pressure 88 mm[Hg] Desean Woo MD Work Phone: [facility] 12-17-2021 10:58-0400 Heart rate 93 /min Desean Woo MD Work Phone: [facility] 12-17-2021 10:58-0400 Respiratory rate 20 /min Desean Woo MD Work Phone: [facility] 12-17-2021 10:58-0400 SaO2% (BldA) [Mass fraction] 99 % Desean Woo MD Work Phone: [facility] 12-17-2021 10:58-0400 Systolic blood pressure 136 mm[Hg] Desean Woo MD Work Phone: [facility] Encounters Encounter Date Encounter Type Care Provider Facility Start: 09-18-2022 Refill Desean asif MD Work Phone: Pulmonary Medicine Procedures Date Procedure Procedure Detail Performing Clinician Start: 12-18-2021 Ct thorax w/o contra st material Desean Woo MD Work Phone: Start: 12-17-2021 INFLUENZA VACCINE QUADRIVALENT 6 MO - 64 YRS IM Desean Woo MD Work Phone: Plan of Treatment Date Care Activity Detail Author Start: 12-18-2022 Influenza vaccination LUNG CANCER SCREENING [facility] Start: 10-16-2022 Covid-19 Vaccine ( season) Covid-19 Vaccine () [facility] Start: 10-16-2022 Influenza vaccination [facility] Start: 2022 RSV Vaccine (1 - 1-dose 60+ series) RSV Vaccine (1 - 1-dose 60+ series) [facility] Start: 02-15-2022 DEPRESSION ASSESSMENT DEPRESSION ASSESSMENT [facility] Start: 12-17-2021 End: 12-17-2022 SARS-CoV-2 (COVID-19) RNA [Presence] in Respiratory specimen by LINDA with probe detection PRE-PROCEDURE & PRE-OPERATIVE COVID Microbiology Routine Lung nodule Chronic obstructive pulmonary disease, unspecified COPD type (HCC) Other emphysema (HCC) Lung nodules Localized enlarged lymph nodes Expected: 12/17/2021, Expires: 12/17/2022 [facility] Work Phone: Immunizations Immunization Date Immunization Notes Care Provider Fa cility 12-17-2021 influenza, injectabl e, quadrivalent, contains preservative Desean Woo MD Work Phone: [facility] 12-17-2021 pneumococcal (PCV20) vaccine, 20 valent (PREVNAR 20) Desean Woo MD Work Phone: [facility] 12-17-2021 pneumococcal Conjugate, unspecified formulation Desean Woo MD Work Phone: [facility] Work Phone: 12-17-2021 influenza virus vaccine, unspecified formulation Ct (I-Stat) Work Phone: [facility] Payers Date Payer Category Payer Medicaid [place] [id number] 2021-Present [phone] [address] [place] [address] Medicaid [id number] 2021 Medicaid [id number] Social History Date Type Detail Facility [facility] Start: 1960 Sex Assigned At Not on file [facility] Start: 12-17-2021 [facility] daily [facility] Work Phone: History of tobacco use Cigarette Smoker [facility] Work Phone: Start: 12-17-2021 Cigarettes smoked current (pack per day) - Reported [address] [facility] Start: 12-17-2021 Tobacco use and exposure Smokeless tobacco non-user [facility] Work Phone: Start: 12-17-2021 Alcohol intake Current drinke r of alcohol (finding) [facility] Start: 12-17-2021 Tobacco Comment Now down to ab out 10-12 cigarettes per day [facility] Start: 12-07-2021 End: 12-17-2021 Exposure to SARS-CoV-2 (event) Not sure [facility] Start: 12-17-2021 Tobacco use panel [facility] Clinical Notes 12-15-2021 to 02-11-2022 Telephone Encounter - Leah Mobley LPN - 02/11/2022 11:30 AM ESTTelephone Encounter - Desean Woo MD - 12/19/2021 11:25 AM Leah Faith, (R) - 12/18/2021 1:40 PM EDT Note Date & Type Note Facility 02-11-2022 Miscellaneous Notes Miriam from Dr. Reynolds office called for recent testing/dictation for coordination of care. Faxed Telephone note from Dr. Betancourt and CT results to . Leah Mobley LPN documented in this encounter [facility] 12-19-2021 Miscellaneous Notes I called Mr. Pinon but got no answer. Per his instruction when I saw him, I called his daughter. The recent chest CT shows improvement of the MERLE changes. Most of the current changes have a scarring appearance. I also do not see any evidence of enlarged node at the area where the PET-CT showed PET avidity. Therefore, no invasive testing is indicated at this point in time. I suggest a repeat chest CT in about 6 months. If all stable, then another chest CT should be done one year later. If the changes remain stable at that point in time, then he can be considered for yearly lung cancer screening. I will send this note and the CT report to Dr. Byrd so the above can be arranged locally. Desean Woo MD, [place] 12/19/2021 11:29 AM CC: Rosy Harper DO ([facility]) Dionisio Byrd MD documented in this encounter [facility] 12-18-2021 Note HNO ID: [id number] Author: RT Bonny(Yvette) Service: ? Author Type: Special Education Director Type: Progress Notes Filed: 12/18/2021 1:56 PM Note Text: Radiology Service Progress Note PATIENT NAME: Rashid Pinon DATE OF SERVICE: December 18, 2021 TIME: 1:56 PM PATIENT IDENTITY VERIFICATION COMPLETED USING TWO (2) IDENTIFIERS: Name and Date of confirmed by patient verbally. FALL SCREENING: Has the patient had 2 falls in the last year or 1 fall with injury or currently using an Ambulatory Assistive Device (Walker, Cane, Wheelchair, Crutches, etc.)? No PATIENT GENDER DATA: Male PATIENT RELEVANT IMPLANT DATA REVIEWED: Yes RADIOLOGY DEPARTMENT: CT; Exam(s) Completed: Chest PERIPHERAL IV DATA: Not applicable SIGNED BY: RT Rvier(Yvette) December 18, 2021 1:56 PM [facility] 12-18-2021 History of Present illness Narrative Radiology Service Progress Note PATIENT NAME: Rashid Pinon DATE OF SERVICE: December 18, 2021 TIME: 1:56 PM PATIENT IDENTITY VERIFICATION COMPLETED USING TWO (2) IDENTIFIERS: Name and Date of confirmed by patient verbally. FALL SCREENING: Has the patient had 2 falls in the last year or 1 fall with injury or currently using an Ambulatory Assistive Device (Walker, Cane, Wheelchair, Crutches, etc.)? No PATIENT GENDER DATA: Male PATIENT RELEVANT IMPLANT DATA REVIEWED: Yes RADIOLOGY DEPARTMENT: CT; Exam(s) Completed: Chest PERIPHERAL IV DATA: Not applicable SIGNED BY: RT River(Yvette) December 18, 2021 1:56 PM documented in this encounter [facility] 12-17-2021 Note HNO ID: [id number] Author: Desean Woo MD Service: ? Author Type: Physician Type: Progress Notes Filed: 12/17/2021 3:18 PM Note Text: INTERVENTIONAL PULMONARY MEDICINE CONSULTATION PLEASE DO NOT REMOVE FROM THE CHART OR MODIFY PRINTED COPY Patient Name: Rashid Pinon : 1960 PRIMARY CARE PHYSICIAN: No primary care provider on file. REFERRING PHYSICIAN: Dionisio Byrd V, MD Consultation requested by Dr. Dionisio Byrd V for an opinion regarding lung nodule. My final recommendations/evaluation will be communicated back to the requesting physician by way of shared medical record or letter via US mail CHIEF COMPLAINT: Spot in the lung HISTORY OF PRESENT ILLNESS: Rashid Pinon is a 61 year old male - Doing overall well - SOB when lifting something. He says he is worse in the morning. He says when he starts to work he is fine - Has had some discomfort on the left chest when not doing anything - Coughs mostly in the morning but off/on throughout the day - Wheezing, very little. Sometimes with humidity, uphill or carrying something - No hemoptysis - No LE edema - No heartburn - Weight is stable and Appetite is good - No fever chills or night sweats - No bumps, lumps in neck - Stable vision and hearing - No gross hematuria - No muscle or joint pain - No focal numbness or weakness - No rash - Sleeps overall well - Somewhat easy brusing - No unusual intolerance to cold or heat PAST MEDICAL HISTORY Diagnosis Date Chickenpox COPD (chronic obstructive pulmonary disease) (HCC) PAST SURGICAL HISTORY Procedure Laterality Date FOOT SURGERY HX FAMILY HISTORY Problem Relation Age of Onset Obstructive Sleep Apnea Mother Arthritis Mother Anxiety disorder Mother COPD Father Social History Tobacco Use Smoking status: Every Day Packs/day: 2.00 Years: 43.00 Pack years: 86.00 Types: Cigarettes Smokeless tobacco: Never Tobacco comments: Now down to about 10-12 cigarettes per day Substance Use Topics Alcohol use: Yes Alcohol/week: 21.0 standard drinks Types: 21 Cans of beer per week ALLERGIES: ALLERGIES No Known Allergies CURRENT OUTPATIENT MEDICATIONS: xupxajmorl-vrmocred-dbfdepflhw (BREZTRI) 160-9-4.8 mcg/actuation HFA aerosol inhaler Inhale 2 Puffs as instructed twice daily. REVIEW OF SYSTEMS Per HPI, otherwise, the remainder of the ROS was negative. PHYSICAL EXAMINATION: VITAL SIGNS: BP 136/88 Pulse 93 Temp (Src) 96.7 (Temporal) Resp 20 Wt 113 lb 9.6 oz (51.5kg) SpO2 99% General appearance: well appearing, alert, and in no acute distress Skin: skin color, texture, turgor normal, no rashes or lesions Head: normal Eyes: Not icteric, no injection and visual acuity is grossly normal ENT: moist mucus membranes Neck: Supple, no adenopathy; thyroid symmetric Lymph nodes: No submandibular, cervical, supraclavicular, axillary, or epitrochlear lymphadenopathy present Lungs: fair air movement Heart: RRR Abdomen: soft, non-tender. Bowel sounds normal. No masses, organomegaly Extremities: Extremities normal. No deformities, edema, or skin discoloration Neuro: no obvious deficit IMAGING: Personally reviewed by me. Please see my impression/recommendations for my own interpretation/comments on imaging. PET/CT Tumor Base -Thigh Init on 10-08-2021 PET/CT Tumor Base -Thigh Init [facility] Imaging Services [address] [place] [address] PET/CT Tumor Base -Thigh Init MR#: [id number] Acct: [id number] Name: RASHID PINON Rep #: [id number] : 1960 M 61 From: Leonel Braden PCP: Ewa Harper DO Status: REG CLI Study: PET/CT Tumor Base -Thigh Init Date of Exam: Exam# [id number] Ordering Dr: Angie StarkOut o. EXAMINATION: FDG PET-CT INDICATIONS: A 61-year-old male with history of pulmonary nodularity. COMPARISON EXAMINATION: None available INDEX LESION SIZE SUV INTERPRETATION Left upper lung field 32.6-mm 4.45 Fulfills quantitative criteria for viable neoplasm, histopathologic analysis recommended NON-INDEX LESION SIZE SUV INTERPRETATION Left thoracic perihilum, right infrahilar region 2.3 (max) Quantitative criteria for viable neoplasm are not fulfilled TECHNIQUE: Following the intravenous administration of 12.08 mCi of F-18 deoxyglucose via the right antecubital fossa, multiplanar image acquisitions of the neck, chest, abdomen and pelvis to level of mid thigh, obtained at one hour post radiopharmaceutical administration contemporaneously interpreted with the current CT of the neck, chest, abdomen and pelvis, to level of mid thigh, dated 10/08/21 via coregistration reveals: BLOOD GLUCOSE LEVEL:?? 97 mg/dl?HEIGHT:?63 inches?WEIGHT: 118 lbs. FINDINGS: Head/Neck: There is no evidence of abnormal increased glucose metabolism in the pharyngeal mucosal space, parapharyngeal space, bilateral-lateral and anteri (more content not included)... [facility] 12-17-2021 Instructions Desean Woo MD - 12/17/2021 12:19 PM EDT Vaccines received today (12/17/21): - [id number] - Flu shot documented in this encounter [facility] 12-17-2021 History of Present illness Narrative Images from the original note were not included. INTERVENTIONAL PULMONARY MEDICINE CONSULTATION PLEASE DO NOT REMOVE FROM THE CHART OR MODIFY PRINTED COPY Patient Name: Rashid Pinon : 1960 PRIMARY CARE PHYSICIAN: No primary care provider on file. REFERRING PHYSICIAN: Dionisio Byrd V, MD Consultation requested by Dr. Dionisio Byrd V for an opinion regarding lung nodule. My final recommendations/evaluation will be communicated back to the requesting physician by way of shared medical record or letter via US mail CHIEF COMPLAINT: Spot in the lung HISTORY OF PRESENT ILLNESS: Rashid Pinon is a 61 year old male - Doing overall well - SOB when lifting something. He says he is worse in the morning. He says when he starts to work he is fine - Has had some discomfort on the left chest when not doing anything - Coughs mostly in the morning but off/on throughout the day - Wheezing, very little. Sometimes with humidity, uphill or carrying something - No hemoptysis - No LE edema - No heartburn - Weight is stable and Appetite is good - No fever chills or night sweats - No bumps, lumps in neck - Stable vision and hearing - No gross hematuria - No muscle or joint pain - No focal numbness or weakness - No rash - Sleeps overall well - Somewhat easy brusing - No unusual intolerance to cold or heat PAST MEDICAL HISTORY Diagnosis Date Chickenpox COPD (chronic obstructive pulmonary disease) (HCC) PAST SURGICAL HISTORY Procedure Laterality Date FOOT SURGERY HX FAMILY HISTORY Problem Relation Age of Onset Obstructive Sleep Apnea Mother Arthritis Mother Anxiety disorder Mother COPD Father Social History Tobacco Use Smoking status: Every Day Packs/day: 2.00 Years: 43.00 Pack years: 86.00 Types: Cigarettes Smokeless tobacco: Never Tobacco comments: Now down to about 10-12 cigarettes per day Substance Use Topics Alcohol use: Yes Alcohol/week: 21.0 standard drinks Types: 21 Cans of beer per week ALLERGIES: ALLERGIES No Known Allergies CURRENT OUTPATIENT MEDICATIONS: fxawyegdrv-pzhowxyp-bmzfeupzxk (BREZTRI) 160-9-4.8 mcg/actuation HFA aerosol inhaler Inhale 2 Puffs as instructed twice daily. REVIEW OF SYSTEMS Per HPI, otherwise, the remainder of the ROS was negative. PHYSICAL EXAMINATION: VITAL SIGNS: BP 136/88 Pulse 93 Temp (Src) 96.7 (Temporal) Resp 20 Wt 113 lb 9.6 oz (51.5kg) SpO2 99% General appearance: well appearing, alert, and in no acute distress Skin: skin color, texture, turgor normal, no rashes or lesions Head: normal Eyes: Not icteric, no injection and visual acuity is grossly normal ENT: moist mucus membranes Neck: Supple, no adenopathy; thyroid symmetric Lymph nodes: No submandibular, cervical, supraclavicular, axillary, or epitrochlear lymphadenopathy present Lungs: fair air movement Heart: RRR Abdomen: soft, non-tender. Bowel sounds normal. No masses, organomegaly Extremities: Extremities normal. No deformities, edema, or skin discoloration Neuro: no obvious deficit IMAGING: Personally reviewed by me. Please see my impression/recommendations for my own interpretation/comments on imaging. PET/CT Tumor Base -Thigh Init [facility] 10-08-2021 [facility] [address] [place] [address] PET/CT Tumor Base -Thigh Init MR#: [id number] Acct: [id number] Name: RASHID PINON Rep #: [id number] : 1960 M 61 From: Leonel Braden PCP: Ewa Harper, DO Status: REG CLI Study: PET/CT Tumor Base -Thigh Init Date of Exam: Exam# [id number] Ordering Dr: Angie StarkOut o. EXAMINATION: FDG PET-CT INDICATIONS: A 61-year-old male with history of pulmonary nodularity. COMPARISON EXAMINATION: None available INDEX LESION SIZE SUV INTERPRETATION Left upper lung field 32.6-mm 4.45 Fulfills quantitative criteria for viable neoplasm, histopathologic analysis recommended NON-INDEX LESION SIZE SUV INTERPRETATION Left thoracic perihilum, right infrahilar region 2.3 (max) Quantitative criteria for viable neoplasm are not fulfilled TECHNIQUE: Following the intravenous administration of 12.08 mCi of F-18 deoxyglucose via the right antecubital fossa, multiplanar image acquisitions of the neck, chest, abdomen and pelvis to level of mid thigh, obtained at one hour post radiopharmaceutical administration contemporaneously interpreted with the current CT of the neck, chest, abdomen and pelvis, to level of mid thigh, dated 10/08/21 via coregistration reveals: BLOOD GLUCOSE LEVEL:?? 97 mg/dl?HEIGHT:?63 inches?WEIGHT: 118 lbs. FINDINGS: Head/Neck: There is no evidence of abnormal increased glucose metabolism in the pharyngeal mucosal space, parapharyngeal space, bilateral-lateral and anterior neck, hypopharynx and distribution of the laryngeal structures. The visualized portion of the cerebral cortical-subcortical structures demonstrate symmetric and preserved glucose metabolism. CHEST: A focus increased glucose metabolism is identified in the left apical lung field. The calculated maximal standard uptake value is 4.45. The maximal axial diameter of the metabolic, morphologic abnormality is 32.6-mm. Increased glucose metabolism is identified in the left thoracic perihilum and right infrahilar region. The calculated maximal standard uptake value is 2.3. Pertinent chest CT findings are as follows. Emphysematous changes are encountered in the bilateral upper lung zones. Coronary arterial calcification is observed. Bilateral axillary soft tissue densities are non-glucose avid. Abdomen/Pelvis: Normal physiologic distribution of the radiopharmaceutical is apparent in the hepatic (2.4) and splenic parenchyma, both renal units, bladder and visualized intestinal tract. Diffuse radiopharmaceutical concentration is noted in all four quadrants of the abdomen and pelvis. Pertinent abdomen and pelvis CT findings are as follows. There is atherosclerotic calcification defined in the abdominal aorta without evidence of dilatation-aneurysm formation. Minimal pelvic arterial calcification is encountered. Right-left inguinal soft tissue densities are non-glucose avid. Calcification is defined in the right base of the prostate gland involving the central zone without evidence of increased glucose metabolism. Calcification is defined in the left lower hemipelvis. Skeletal: Degenerative changes are noted in the cervical, thoracic and lumbar spine without evidence of increased radiopharmaceutical concentration. There are no well-defined sclerotic-lytic changes manifest on review of the appendicular-axial skeletal structures. PET/PET/CT Tumor Base -Thigh Init IMPRESSION: 1. The increase in glucose metabolism identified in the left upper hemithorax pulmonary parenchyma, left upper lobe fulfills quantitative criteria for viable neoplasm with single point technique. Histopathologic analysis is recommended. 2. The enhanced tracer concentration noted in the right infrahilar region and left thoracic perihilum do not fulfill quantitative criteria for malignant transformation. (Maria C et al, Journal of Clinical Oncology 16:2142, 1998). Electronic Signature Leonel Mercado D.O. Accurate Quantification of SUVs for this report are calculated using the exclusive [employer] Technology. (U.S. Patent No. 10, 674, 983). Standardization and correction of the FDG SUV metric via ACCUQUAN technology allow for vendor non-specific objective quantitative examination comparison and optimization of the sensitivity and specificity of the FDG PET-CT examination. Electronically Signed: Leonel Mercado, at 16:37 EDT , Chest WITH Contrast on 09-25-2021 Chest WITH Contrast [facility] Imaging Services [address] [place] [address] Chest WITH Contrast MR#: [id number] Acct: [id number] Name: RASHID PINON Rep #: [id number] : 1960 M 61 From: Jose Roberto cardenas MD PCP: Ewa Harper DO Status: REG CLI Study: Chest WITH Contrast Date of Exam: 09/25/21 Exam# [id number] Ordering Dr: Ewa Harper DO STUDY: CT CHEST WITH CONTRAST REASON FOR EXAM: Male, 61 years old. Lung nodule, shortness of breath RADIATION DOSAGE (If Supplied By Facility): CTDIvol = ( 8 ) mGy, DLP = ( 233.3 ) mGycm TECHNIQUE: Transaxial imaging was performed following intravenous administration of IV 100mL Isovue-300. Multiplanar coronal and sagittal images were reformatted. Individualized dose optimization techniques were used for this CT. COMPARISON: No relevant priors. _ FINDINGS: CHEST Hyperinflation. Diffuse emphysematous changes with bullous formation more prominent in the upper lobes. There is evidence of a pleural-based irregular soft tissue nodule in the posterior aspect of the left upper lobe measuring 1.7 cm x 1.2 cm. Anterior to this, there is evidence of bullous changes with a finding suggestive of linear scarring and spiculation. Correlation with a PET scan is recommended for further evaluation. There is no demonstrated pleural abnormality. There are calcifications of the coronary arteries. Normal mediastinum. Normal hilar regions. Normal unenhanced pulmonary arteries. Normal aorta arch and descending thoracic aorta. Normal osseous structures. There is a 2 cm x 2 cm cyst in the upper medial aspect of the right kidney. There is also evidence of a 0.9 cm cyst in the right lobe of the liver. _ CT/Chest WITH Contrast IMPRESSION: Hyperinflation and emphysema with bullous changes. Findings suggestive of irregular scarring in the posterior aspect of the left upper lobe as described. Correlation with a PET scan is recommended for further evaluation to rule out underlying neoplastic process. Electronically Signed: Jose Roberto Wynne MD at 9:08 EDT , OTHER TESTING: Outside PFTs (12/04/21) FVC 2.59 / 38% FEV1 0.98 / 35% 1.04 / 38% (6% change post-bronchodilator) FEV1/FVC 38 TLC 4.71 / 88% RV 2.12 / 107% DLCO 11.7 / 69% IMPRESSIONS: - MERLE PET avid nodular changes: While these changes are PET avid, the appearance is more suggestive of scarring. However, an underlying malignancy cannot be ruled out at this point in time. Follow up imaging is indicated before a decision can be made about an invasive test to sample or attempt to sample the area. - Possible increased PET avidity in the left suprahilum: I see no significant abnormality on the CT from September. The repeat CT may also help help us on this. - Possible PET avidity in the upper esophagus: This was not reported on the official PET-CT report, but it appears to be present to my eyes. - COPD: Just recently started inhalers. - Preoperative examination: No obvious contraindication to undergo general anesthesia if we decide to move forward with a bronchoscopy to go after the MERLE changes. However, she is obviously at increased risk for ramana-procedure respiratory complications. RECOMMENDATION/PLAN: - Repeat chest CT (navigation bronch protocol). Contrast is needed to eval the PET avid left suprahilar area - Consider GI eval for the PET avid esophagus - Further recommendations after the repeat CT. I plan to communicate with the patient over the phone or virtual visit Written and verbal health teaching given to patient, patient verbalizes understanding and agrees with treatment plan. Electronically Signed: Desean Woo MD December 17, 2021 9:14 AM CC: Rosy Harper DO ([facility]) Dionisio Byrd MD documented in this encounter [facility] 12-17-2021 Miscellaneous Notes Images from the original note were not included. 12/17/21- Received and scanned in outside medical record documented in this encounter [facility] 12-16-2021 Note HNO ID: [id number] Author: Christina Gavin RN Service: ? Author Type: Registered Nurse Type: Progress Notes Filed: 12/16/2021 12:39 PM Note Text: Spoke with Dr. Byrd's office in regards to latest HANDP. Office states patient was just seen today 12/16/21 and they are waiting for note to be completed. Once completed they will fax it over. [facility] 12-15-2021 Note HNO ID: [id number] Author: Christina Gavin RN Service: ? Author Type: Registered Nurse Type: Progress Notes Filed: 12/16/2021 12:30 PM Note Text: IP Clinical Coordinator Pre-Visit Chart Review Date of Visit: 12/17/21 Type of Visit: New Consult Summary of Reason for Visit: Lung Nodule; referred by Dr. Dionisio Byrd Needed Testing Prior to Visit: PET scan and CT images requested from [facility] Notes: Requested notes from patient's last HANDP from Dr. Byrd's office PET Scan Chest Findings 10/08/21 Images available as of 12/16/21 CHEST: A focus increased glucose metabolism is identified in the left apical lung field. The calculated maximal standard uptake value is 4.45. The maximal axial diameter of the metabolic, morphologic abnormality is 32.6-mm. Increased glucose metabolism is identified in the left thoracic perihilum and right infrahilar region. The calculated maximal standard uptake value is 2.3. Pertinent chest CT findings are as follows. Emphysematous changes are encountered in the bilateral upper lung zones. Coronary arterial calcification is observed. Bilateral axillary soft tissue densities are non-glucose avid . CT Chest 09/25/21 Images available as of 12/16/21 IMPRESSION: Hyperinflation and emphysema with bullous changes. Findings suggestive of irregular scarring in the posterior aspect of the left upper lobe as described. Correlation with a PET scan is recommended for further evaluation to rule out underlying neoplastic process. Christina Gavin MSN, RN, CCRN-K Interventional Pulmonary Clinical Coordinator [facility] 12-15-2021 History of Present illness Narrative IP Clinical Coordinator Pre-Visit Chart Review Date of Visit: 12/17/21 Type of Visit: New Consult Summary of Reason for Visit: Lung Nodule; referred by Dr. Dionisio Byrd Needed Testing Prior to Visit: PET scan and CT images requested from [facility] Notes: Requested notes from patient's last H&P from Dr. Byrd's office PET Scan Chest Findings 10/08/21 CHEST: A focus increased glucose metabolism is identified in the left apical lung field. The calculated maximal standard uptake value is 4.45. The maximal axial diameter of the metabolic, morphologic abnormality is 32.6-mm. Increased glucose metabolism is identified in the left thoracic perihilum and right infrahilar region. The calculated maximal standard uptake value is 2.3. Pertinent chest CT findings are as follows. Emphysematous changes are encountered in the bilateral upper lung zones. Coronary arterial calcification is observed. Bilateral axillary soft tissue densities are non-glucose avid . CT Chest 09/25/21 IMPRESSION: Hyperinflation and emphysema with bullous changes. Findings suggestive of irregular scarring in the posterior aspect of the left upper lobe as described. Correlation with a PET scan is recommended for further evaluation to rule out underlying neoplastic process. Christina Gavin MSN, RN, CCRN-K Interventional Pulmonary Clinical Coordinator documented in this encounter [facility] documented [facility] Diagnosis Lung nodule Solitary pulmonary nodule Chronic obstructive pulmonary disease, unspecified COPD type (HCC) Other emphysema (HCC) Other emphysema Lung nodules Other nonspecific abnormal finding of lung field Localized enlarged lymph nodes Enlargement of lymph nodes documented in this encounter [facility] Reason for Referral Specialty Diagnoses / Procedures Referred By Nawaf valero Referred To Contact CT IMAGING Diagnoses Lung nodule Chronic obstructive pulmonary disease, unspecified COPD type (HCC) Other emphysema (HCC) Lung nodules Localized enlarged lymph nodes Procedures CT CHEST W IVCON DIAGNOSTIC COMPUTED TOMOGRAPHY THORAX W/CONTRAST Desean Woo MD [address] [place] [address] Ct Imaging Referral ID Status Reason Start Date Expiration Date Visits Requested Visits Authorized [id number] Authorized Auto-Generat ed Referral 12/17/2021 01/16/2023 1 1 Summary Purpose Family History No Family History Records Found Advance Directives No Advanced Directives Records Found Additional Source Comments Source Comments (unrecognize d section and content) In the event this informatio n is protected by the Federal Confidentiality of Alcohol and Drug Abuse Patient Records regulations: The Federal rules restrict any use of the information to criminally investigate or prosecute any alcohol or drug abuse patient.[facility] the event this information is protected by the Federal Confidentiality of Alcohol and Drug Abuse Patient Records regulations: The Federal rules restrict any use of the information to criminally investigate or prosecute any alcohol or drug abuse patient.[facility] the event this information is protected by the Federal Confidentiality of Alcohol and Drug Abuse Patient Records regulations: The Federal rules restrict any use of the information to criminally investigate or prosecute any alcohol or drug abuse patient.[facility] the event this information is protected by the Federal Confidentiality of Alcohol and Drug Abuse Patient Records regulations: The Federal rules restrict any use of the information to criminally investigate or prosecute any alcohol or drug abuse patient.[facility] the event this information is protected by the Federal Confidentiality of Alcohol and Drug Abuse Patient Records regulations: The Federal rules restrict any use of the information to criminally investigate or prosecute any alcohol or drug abuse patient.[facility] the event this information is protected by the Federal Confidentiality of Alcohol and Drug Abuse Patient Records regulations: The Federal rules restrict any use of the information to criminally investigate or prosecute any alcohol or drug abuse patient.[facility] the event this information is protected by the Federal Confidentiality of Alcohol and Drug Abuse Patient Records regulations: The Federal rules restrict any use of the information to criminally investigate or prosecute any alcohol or drug abuse patient.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 Relationship Specialty Start Date End Date Dionisio Byrd V [address] [place] [address] Referring Internal Medicine 12/12/21 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 Relationship Specialty Start Date End Date Dionisio Byrd V [address] [place] [address] Referring Internal Medicine 12/12/21 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 Relationship Specialty Start Date End Date Dionisio Byrd V [address] [place] [address] Referring Internal Medicine 12/12/21 Reason for Visit (unrecogniz ed section and content) Reason Comments New Reason Comments 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 Reason Comments NG Tube Replacement Radiology CT Specialty Diagnoses / Procedures Referred By Contac t Referred To Contact CT IMAGING Diagnoses Lung nodule Chronic obstructive pulmonary disease, unspecified COPD type (HCC) Other emphysema (HCC) Lung nodules Localized enlarged lymph nodes Procedures CT CHEST W IVCON DIAGNOSTIC COMPUTED TOMOGRAPHY THORAX W/CONTRAST Desean Woo MD [address] [place] [id number] Imaging [place] [address] Referral ID Status Reason Start Date Expiration Date V isits Requested Visits Authorized [id number] Closed Auto-Generate d Referral 12/17/2021 01/16/2023 1 1 (unrecognized sect ion and content) No Status Records Found INFORMATION SOURCE (unrecogn ized section and content) FOR RECORDS PERTAINING TO PATIENTS WHO ARE OR HAVE BEEN ENROLLED IN A CHEMICAL DEPENDENCY/SUBSTANCEABUSE PROGRAM, SOME INFORMATION MAY BE OMITTED. This clinical summary was aggregated from multiple sources. Caution should be exercised in using it in the provision of clinical care. This summary normalizes information from multiple sources, and as a consequence, information in this document may materially change the coding, format and clinical context of patient data. In addition, data may be omitted in some cases. CLINICAL DECISIONS SHOULD BE BASED ON THE PRIMARY CLINICAL RECORDS. [facility] [employer] [facility]. provides no warranty or guarantee of the accuracy or completeness of information in this document.
[2023-05-02 00:37] LABS: ALB/GLOB Ratio 1.1 RATIO (0.9-2.4); AST(SGOT) 28 U/L (15-37); Alanine Aminotransfer ALT/SGPT 23 U/L (16-61); Albumin, Serum 3.9 g/dL (3.2-5.0); Alkaline Phosphatase 73 U/L (45-117); Anion Gap 7 (5-15); BUN 8 mg/dL (7-18); BUN/Creat Ratio 9.7 RATIO (10-20); Calcium,Total 8.9 mg/dL (8.5-10.1); Chloride 109 mmol/L (98-107); Creatinine, Serum 0.83 mg/dL (0.70-1.30); EST Glomerular Filtration Rate 100 mL/min (>60); Est Glom Filt Rate - Afr Amer 121 mL/min (>60); Estimated Creatinine Clearance 71.52 ml/min; Globulin 3.6 g/dL (2.2-4.2); Glucose 83 mg/dL (74-106); Potassium 3.5 mmol/L (3.5-5.1); Protein, Total 7.5 g/dL (6.4-8.2); Sodium Level 143 mmol/L (136-145)
[2023-05-02 00:39] LABS: Absolute Lymphocyte Count 1.85 X10^3/uL (0.83-4.51); Absolute Neutrophil Count 4.6 X10^3/uL (2.0-7.7); Basophil# 0.06 X10^3/uL; Basophil% 0.9 % (0-1); Eosinophil# 0.07 X10^3/uL; Hematocrit 46.9 % (40-54); Hemoglobin 15.3 g/dL (13.0-16.5); Lymphocyte # 1.85 X10^3/ul (0.83-4.51); Lymphocyte % 26.5 % (19-41); Mean Corp Hgb Conc 32.6 g/dL (32-36); Mean Corpuscular Volume 104.2 fL (80-94); Mean Platelet Vol. 8.5 fl (6.2-12.0); Monocyte# 0.33 X10^3/uL; Monocyte% 4.7 % (0-10); NRBC Flagged by Analyzer 0 % (0-5); Neutrophil # 4.57 X10^3/uL (2.7-7.7); Neutrophil % 65.5 % (47-70); Platelet Count 311 K/mm3 (150-450); RBC Distribution Width CV 12.4 % (11.6-14.6); RBC Distribution Width SD 48.2 fl (35.1-43.9)
--- NOTE | 2023-05-02 01:17 | ED.RN ---
call and voicemail made to Nano Alva per patient request
--- NOTE | 2023-05-02 01:23 | ED.RN ---
spoke on phone with Libertad Alva, informed she is coming to drive patient home
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
[2023-05-02 01:33] VITALS: BP 117/65; PULSE 71; RESP 18; TEMP 36.3; O2SAT 100
[2023-05-02 01:38] VITALS: BP 123/92; PULSE 108; RESP 15; TEMP 36.7; O2SAT 95
== END 2023-05-02 01:44 | disposition home or self-care (01) ==
PROVIDERS: Emergency Provider Emergency Medicine; PCP Family Medicine; Visit Provider Emergency Medicine
DX: F10.929 Alcohol use, unspecified with intoxication, unspecified (principal); J44.9 Chronic obstructive pulmonary disease, unspecified; S01.81XA Laceration without foreign body of other part of head, initial encounter; F17.200 Nicotine dependence, unspecified, uncomplicated; V89.2XXA Person injured in unspecified motor-vehicle accident, traffic, initial encounter; Y90.8 Blood alcohol level of 240 mg/100 ml or more
CPT/HCPCS: 80053; 80320; 85025; 99282; G0480

== ENCOUNTER → 2024-12-12 | Outpatient (CLI) | payer MEDICAID, SELFPAY ==
--- NOTE | 2024-12-12 10:30 | PET_ITS ---
PROCEDURE: PET/CT TUMOR BASE -THIGH INIT 12/12/2024 REASON FOR EXAM: 64 y/o M with SOLITARY PULMONARY NODULE, left upper lobe. TECHNIQUE: Procedure Code: [id number] Modality: PT Procedure: PET/CT TUMOR BASE -THIGH INIT Following the intravenous administration of radionucleotide, image acquisition on a dedicated PET/CT unit was performed at one hour post injection. A preliminary CT study encompassing the Skull base, neck, chest, abdomen, pelvis, and proximal thighs was performed for purposes of attenuation correction and anatomic localization. The proximal thighs were also included. The patient's blood glucose level was 96 mg/dL (allowable range: 50-180 mg/dL). RADIOPHARMACEUTICAL: 14.061 mCi 18F-FDG (Fluorodeoxyglucose F18) IV was injected into he patient. RADIATION DOSE SUMMARY: Effective Dose: Approximately 7 mSv for a standard whole-body PET scan Organ Doses: Varies by organ, with higher doses typically to the bladder, liver, and brain COMPARISON: COMPARISON FROM CT, PET OR OTHER PERTINENT EXAMS: PET-CT of 10/08/2021. No other comparison study is available. FINDINGS: Physiologic uptake: There may be expected metabolic uptake within the brain, tongue and floor of the mouth and larynx/vocal cords, heart, marilin (many normal individuals have hilar uptake in less than 3 nodes with mildly avid hilar nodes less than 2.7 SUV), liver and spleen, system, and GI tract and symmetric muscle uptake. FDG AVID AND NON-AVID LESIONS. Reported avid SUV values (g/mL*) are maximum SUV. NECK: There are no significant neck abnormalities. CHEST: Chest wall- There are no significant chest wall abnormalities. Axilla- There are no significant axillary abnormalities. Lung parenchyma- In the posterior left upper lobe, a subcentimeter nodule with hypermetabolic activity is concerning for the presence of malignancy. SUV max is 6.9. In the anterolateral left upper lobe, a hypermetabolic nodule is seen, with SUV max of 8.2. This is concerning for the presence of malignancy. Areas of pulmonary emphysema are seen, most prominent at the lung apices, with pleural-parenchymal scarring bilaterally, [id number], and improved on the left compared to the prior PET-CT of 2021. Mediastinum- There are no significant hilar or mediastinal adenopathy. Pleura- There are no significant pleural abnormalities. ABDOMEN: Stomach- No significant abnormalities. Liver- No significant abnormalities. Spleen- No significant abnormalities. Pancrease- No significant abnormalities. Kidneys- No significant abnormalities. Bowel- Normal bowel activity. Spine- No significant abnormalities. PELVIS: Bowel- Normal physiologic bowel activity is identified. Masses- There are no pelvic masses. Moderate sigmoid diverticulosis is noted. Bones- Degenerative changes of the spine are seen, most prominent at the cervical levels. With the use of bone window settings, there are no osteolytic or osteoblastic lesions. There are no FDG avid lesions within the visualized portion of the axial skeleton. PET/PET/CT Tumor Base -Thigh Init IMPRESSION: FDG avid- 2 small left upper lobe hypermetabolic nodules, both highly concerning for the presence of malignancy. Other: Emphysematous changes of the lungs. Moderate sigmoid diverticulosis. Degenerative changes of the spine, most prominent at the cervical levels. Please note the low-dose CT scan was performed to facilitate PET image reconstr uction and anatomic localization and does not replace a diagnostic CT. Any diagnostic CT requested and performed at the time of the PET will be reported separately. Reading Location: [place] [id number]
== END | disposition home or self-care (01) ==
LOC: ONC 10:31
PROVIDERS: Referring Provider Internal Medicine Pulmonary Disease; Visit Provider Internal Medicine Pulmonary Disease
DX: R91.1 Solitary pulmonary nodule (principal)
CPT/HCPCS: 78815; A9552